=== PATIENT | female | born 1970 | race Caucasian/White ===

== ENCOUNTER 2023-09-11 12:54 | Emergency (ER) | payer BC, SELFPAY ==
[2023-09-11 12:55] VITALS: BP 132/82; PULSE 94; RESP 18; TEMP 36.2; O2SAT 99; BMI 34.2
--- NOTE | 2023-09-11 13:35 | RAD_ITS ---
STUDY: X-RAY - RIGHT SHOULDER REASON FOR EXAM: Female, 52 years old. PAIN TECHNIQUE: 4 view(s) of the shoulder. COMPARISON: None. FINDINGS: There is mild degenerative arthrosis of the glenohumeral articulation. Small focus of calcification present at the greater tuberosity insertion site is compatible with calcific tendinitis. Normal acromioclavicular joint. Normal acromion. Normal humeral head and visualized proximal humerus. The soft tissue structures are unremarkable. There is no demonstrated fracture. Normal visualized pulmonary apex. RAD/Shoulder min 2 Views IMPRESSION: 1. Mild joint space narrowing. Small focus of calcification present at the greater tuberosity insertion site is compatible with calcific tendinitis. Electronically Signed: Anton Ryan MD at 14:03 EDT ,
--- NOTE | 2023-09-11 14:05 | EX.ED.UPPERE ---
HPI History of Present Illness Chief Complaint: Upper Extremity Injury [facility] Medical History (Updated 09/11/23 @ 13:26 by Fidelina Spencer) GERD (gastroesophageal reflux disease) Allergy/AdvReac Type Severity Reaction Status Date / Time codeine AdvReac Nausea Verified 09/11/23 12:57 Social History Smoking Status: Current every day smoker tobacco type: cigarettes EXAM Physical Exam Const Vital Signs: 09/11/23 12:55 Temperature 97.1 F L Temperature Source Temporal Pulse Rate 94 Respiratory Rate 18 Blood Pressure 132/82 H Blood Pressure Mean 98 Pulse Ox 99 Oxygen Delivery Method Room Air [facility] [place] Medical decision making narrative: HISTORY OF PRESENT ILLNESS: 52-year-old female here with right shoulder pain. States she heard a pop after laying in a chair. She further states REVIEW OF SYSTEMS: Pertinent positives: Shoulder pain Pertinent negatives: Numbness, weakness, loss of sensation PHYSICAL EXAM: Nursing triage notes reviewed, Vital signs reviewed Constitutional: please see mdm Neck: No stridor, no JVD, full neck ROM, no step-offs or deformities of cervical spine Lungs: Clear to auscultation, No wheezing or rales. No increased work of breathing, no conversational dyspnea, no accessory muscle use, no nasal flaring. No respiratory distress noted Heart: Regular rate and rhythm, No murmurs, No rubs and No gallops, 2+ distal pulses (radial, femoral, posterior tibial) in all extremities Extremities: No edema,, TTP over right deltoid/trapezius. No obvious step-offs deformities. No clavicular tenderness. Compartments are soft. No unilateral extremity swelling. Neuro: N intact 5/5 strength with ok sign (median), intact finger abduction (ulnar) intact wrist extension (radial n). Intact sensation in the radial, ulnar, and median nerve distributions. Skin: No rash or lesions noted MEDICAL DECISION MAKING: Chief Complaint: Shoulder pain External records reviewed: No recent advanced imaging of the involved extremity Factors affecting care: none Social determinants of health: none History obtained from others: none Consults: none [facility] Narrative: Patient was hemodynamically stable, afebrile, nontoxic-appearing. Exam I considered the following differential diagnosis: Shoulder fracture, dislocation, soft tissue injury ALL IMAGES (IF OBTAINED) HAVE BEEN PERSONALLY REVIEWED AND INTERPRETED BY MYSELF. X-ray of the right shoulder was reviewed myself shows no evidence of acute bony abnormality, fracture or dislocation. Radiologist reads possible calcific tendinitis. Likely soft tissue injury likely rotator cuff injury. Patient will be given NSAID instructions, RICE instructions and close outpatient orthopedic follow-up instructions. The patient and/or family, caregivers express understanding. The patient and/or family, caregivers agrees with the plan. Shared decision making: I will have a discussion with the patient and or visitors regarding risk/benefits of further testing or admission. They will be made aware of of the risk/benefits inherent in this decision they will be given the opportunity to voice understanding. Total critical care time today provided was at least 0 [] minutes. This excludes separately billable procedures. Critical care time (if documented) is secondary to the patient having high probability of clinically significant/life threatening deterioration in the patient's condition which required my urgent intervention. Impression: 1. Right shoulder pain 2. Right shoulder calcific tendinitis Dispo: Discharge Radiography Diagnostic Testing: Clinical Impression(s) from Imaging Studies Shoulder X-Ray 09/11/23 13:35 IMPRESSION: 1. Mild joint space narrowing. Small focus of calcification present at the greater tuberosity insertion site is compatible with calcific tendinitis. Electronically Signed: Anton Ryan MD at 14:03 EDT Reading Location ID and State: [facility] / [place] , Service support , Discharge Plan Triage Chief Complaint: Upper Extremity Injury ED Provider: Prakash Kinsey Dx/Rx/DC Orders Instructions: ED Shoulder Pain, Uncertain Cause Primary Care Provider: Care Physician,No Primary Referrals: Edwin Hatfield MD [Med Staff - Active Staff] - Activity Restrictions/Additional Instructions: Thank you for trusting us with your care today! Please take Tylenol (2 pills, 650 mg), ibuprofen (2 pills, 400 mg) every 6 hours as needed for pain and fever control. Please return to the emergency department if your symptoms change or worsen. Please follow with your primary care physician and/or orthopedic surgery for further outpatient evaluation and management. Disposition Disposition: Home, Self Care
== END 2023-09-11 14:52 | disposition home or self-care (01) ==
PROVIDERS: Emergency Provider Emergency Medicine; Visit Provider Emergency Medicine
DX: M25.511 Pain in right shoulder (principal); M75.31 Calcific tendinitis of right shoulder; F17.210 Nicotine dependence, cigarettes, uncomplicated
CPT/HCPCS: 73030; 99282